=== PATIENT | female | born 1940 | race Caucasian/White ===

== ENCOUNTER 2019-01-08 07:53 | Inpatient (IN) | payer OTHER, MEDICARE ==
--- NOTE | 2019-01-08 08:06 | PDOC ---
History of Present Illness - General Stated Complaint: CHEST PAIN Time Seen by Provider: 01/08/19 08:05 - History of Present Illness Initial Comments: 01/08/19 08:05 Ms. Doan is a 78 yo female w/ pmh of hypothyroidism, s/p mitral valve repair 2 years ago and afib w/ implanted ICD/pacemaker (not on AC) who presents for evaluation of transient episode this morning of chest pain she localizes to under her breasts ALCON. Patient reports pain radiated to her L jaw and became worse as she atempted to walk around. Ms. Doan woke up her son and EMS was called. EMS gave 324 chewable aspirin en route and patient reports she is feeling much better now. Patient also reports an episode 3 weeks ago of L sided arm pain radiating up to her L neck that lasted approximately 10 minutes that she did not follow-up on. The patient denies headache and dizziness. Denies fever, chills, nausea, vomit, diarrhea and constipation. Denies dysuria, frequency, urgency and hematuria. Past History - Past Medical History Allergies/Adverse Reactions: Allergies Allergy/AdvReac Type Severity Reaction Status Date / Time shellfish derived Allergy Verified 01/08/19 08:14 Home Medications: Ambulatory Orders Atorvastatin Ca [Lipitor] 40 mg PO HS 05/30/14 Levothyroxine [Synthroid -] 100 mcg PO DAILY 05/30/14 Aspirin Coated [Ecotrin -] 81 mg PO DAILY 04/19/15 L.acidoph,Paracasei, B.lactis [Probiotic] 1 each PO DAILY 04/19/15 Metoprolol Succinate [Toprol XL -] 25 mg PO DAILY 04/19/15 Multivitamin with Minerals [Icaps Plus] 1 each PO DAILY 04/19/15 Anemia: No Asthma: No Cancer: No Cardiac Disorders: Yes (mvp, cardiac arrhythmia) CVA: No COPD: No CHF: No Dementia: No Diabetes: No GI Disorders: Yes (colon polyps) Disorders: No HTN: No Hypercholesterolemia: Yes Liver Disease: No Seizures: No Thyroid Disease: No - Psycho Social/Smoking Cessation Hx Smoking History: Former smoker Have you smoked in the past 12 months: No If you are a former smoker, when did you quit?: 1971 Hx Alcohol Use: No Drug/Substance Use Hx: No Substance Use Type: None Hx Substance Use Treatment: No Review of Systems - Review of Systems Comments:: 01/08/19 08:05 GENERAL/CONSTITUTIONAL: No fever or chills. No weakness. HEAD, EYES, EARS, NOSE AND THROAT: No change in vision. No ear pain or discharge. No sore throat. CARDIOVASCULAR: +Chest pain radiating as described w/ SOB now resolved. RESPIRATORY: No cough, wheezing, or hemoptysis. GASTROINTESTINAL: No nausea, vomiting, diarrhea or constipation. GENITOURINARY: No dysuria, frequency, or change in urination. MUSCULOSKELETAL: No joint or muscle swelling or pain. No neck or back pain. SKIN: No rash NEUROLOGIC: No headache, vertigo, loss of consciousness, or change in strength/ sensation. ENDOCRINE: No increased thirst. No abnormal weight change HEMATOLOGIC/LYMPHATIC: No anemia, easy bleeding, or history of blood clots. ALLERGIC/IMMUNOLOGIC: No hives or skin allergy. *Physical Exam - Physical Exam Comments: 01/08/19 08:05 GENERAL: Awake, alert, and fully oriented, in no acute distress HEAD: No signs of trauma, normocephalic, atraumatic EYES: PERRLA, EOMI, sclera anicteric, conjunctiva clear ENT: Auricles normal inspection, hearing grossly normal, nares patent, oropharynx clear without exudates. Moist mucosa NECK: Normal ROM, supple, no lymphadenopathy, JVD, or masses LUNGS: No distress, speaks full sentences, clear to auscultation bilaterally HEART: Regular rate and rhythm, normal S1 and S2, no murmurs, rubs or gallops, peripheral pulses normal and equal bilaterally. ABDOMEN: Soft, nontender, normoactive bowel sounds. No guarding, no rebound. No masses EXTREMITIES: Normal inspection, Normal range of motion, no edema. No clubbing or cyanosis. NEUROLOGICAL: Cranial nerves II through XII grossly intact. Normal speech, normal gait, no focal sensorimotor deficits SKIN: Warm, Dry, normal turgor, no rashes or lesions noted. ED Treatment Course - LABORATORY CBC & Chemistry Diagram: 01/08/19 08:30 01/08/19 08:30 Medical Decision Making - Medical Decision Making 01/08/19 09:15 Ms. Doan is a 78 yo female w/ pmh as described who presents for evaluation of symptoms concerning for ACS vs. GERD vs. Pneumonia. Patient evaluated with labs as below, EKG, CXR. Patient EKG significant for ST depressions noted in V2-V3 w/ out reciprocal changes. Patient will likely be admitted for further cardiac follow-up. 01/08/19 11:33 Patient labs grossly wnl as below. Repeat EKG ordered to r/o evolution of process unchanged. Labs grossly wnl as below. Patient admitted to hospitalist for further evaluation. 01/08/19 13:18 Discussed patient with cardiology as well as PCP who believe patient ok for med/ surg bed. Patient downgraded from telemetry. Laboratory Results - last 24 hr 01/08/19 01/08/19 01/08/19 08:30 08:30 08:30 WBC 5.3 RBC 4.84 Hgb 14.6 Hct 44.2 MCV 91.3 MCH 30.1 MCHC 33.0 RDW 13.7 Plt Count 146 MPV 8.9 Absolute Neuts (auto) 3.9 Neutrophils % 73.6 Lymphocytes % 13.5 Monocytes % 8.6 Eosinophils % 3.3 Basophils % 1.0 Nucleated RBC % 0 PT with INR 10.90 INR 0.92 PTT (Actin FS) 32.1 Sodium 140 Potassium 4.3 Chloride 106 Carbon Dioxide 29 Anion Gap 5 L BUN 22.5 H Creatinine 0.7 Est GFR (CKD-EPI)AfAm 96.86 Est GFR (CKD-EPI)NonAf 83.57 Random Glucose 98 Calcium 8.4 L Total Bilirubin 0.6 AST 22 ALT 30 Alkaline Phosphatase 107 Creatine Kinase 48 Troponin I < 0.02 Total Protein 6.8 Albumin 3.3 L TSH 3.75 H Discharge - Discharge Information Problems reviewed: Yes Clinical Impression/Diagnosis: Chest pain Qualifiers: Chest pain type: unspecified Qualified Code(s): R07.9 - Chest pain, unspecified - Admission Yes - Follow up/Referral - Patient Discharge Instructions - Post Discharge Activity
[2019-01-08 08:46] LABS: EOS % 3.3 % (0-4.5); HEMATOCRIT 44.2 % (32.4-45.2); HEMOGLOBIN 14.6 GM/dL (10.7-15.3); LYMPH % 13.5 % (8-40); MCH 30.1 pg (25.7-33.7); MEAN CELL VOLUME 91.3 fl (80-96); MEAN PLT VOLUME 8.9 fl (7.5-11.1); MONO % 8.6 % (3.8-10.2); NEUT % 73.6 % (42.8-82.8); PLATELET COUNT 146 K/MM3 (134-434); RBC 4.84 M/mm3 (3.60-5.2); RDW 13.7 % (11.6-15.6); WHITE BLOOD COUNT 5.3 K/mm3 (4.0-10.0)
[2019-01-08 09:05] LABS: INR 0.92 (0.83-1.09); PROTHROMBIN TIME (PATIENT) 10.9 SEC (9.7-13.0)
[2019-01-08 09:08] LABS: ACTIVATED PTT 32.1 SECONDS (25.2-36.5)
[2019-01-08 09:23] LABS: ALBUMIN 3.3 g/dl (3.4-5.0); ALK PHOS 107 U/L (45-117); ANION GAP 5 MMOL/L (8-16); BILIRUBIN,TOTAL 0.6 mg/dL (0.2-1); BLOOD UREA NITROGEN 22.5 mg/dL (7-18); CALCIUM 8.4 mg/dL (8.5-10.1); CHLORIDE 106 mmol/L (98-107); CO2 29 mmol/L (21-32); CREATININE 0.7 mg/dL (0.55-1.3); GLUCOSE,RANDOM 98 mg/dL (74-106); POTASSIUM 4.3 mmol/L (3.5-5.1); SGOT/AST 22 U/L (15-37); SGPT/ALT 30 U/L (13-61); SODIUM 140 mmol/L (136-145); TOT PROT 6.8 g/dl (6.4-8.2)
--- NOTE | 2019-01-08 11:32 | PDOC ---
Attending Attestation - Resident Resident Name: Maicol Marti - ED Attending Attestation I have performed the following: I have examined & evaluated the patient, The case was reviewed & discussed with the resident, I agree w/resident's findings & plan, Exceptions are as noted - HPI HPI: 01/08/19 11:28 78-year-old female history of MVR A. fib hypertension AICD here today complaining of chest pain described as pressure-like sensation. Patient started started left side radiating across her chest lasted for several hours she said it became progressively worse with time did have some associated diaphoresis and nausea at the time sensation of feeling short of breath denies any numbness or tingling no history of blood clots in the legs or lungs previously. Denies any recent leg swelling or calf pain no cough no fevers no chills at this time states her pain has since resolved - Physicial Exam PE: 01/08/19 11:30 Awake alert no acute distress lungs are clear bilaterally no appreciated murmurs rubs or gallops. Abdomen is soft nontender extremities are warm well perfused there is no peripheral edema or calf tenderness skin is warm and dry neurologically patient is awake alert oriented x3 pulses are symmetric bilaterally - Medical Decision Making 01/08/19 11:30 78-year-old female history of MVR AICD hypertension here today complaining of chest pain. Story is concerning for unstable angina EKG shows mild ST depressions in V2 V3 otherwise is unremarkable it is change from her prior EKG from 2007 in October. Will send CBC CMP troponin chest x-ray patient was given aspirin due to her risk factors and concerning story in addition to the EKG changes will be admitted to the hospital. Repeat EKG was obtained which shows persistent morphology no acute changes Heart Score/ECG Review #1 ECG reviewed & interpreted by me at: 11:31 General ECG Interpretation: Sinus Rhythm, Normal Rate (86), Normal Intervals Compared to previous ECG there are: Changes noted (comparison st depression V2, V3) #2 General ECG Interpretation: Sinus Rhythm, Normal Rate (79), Normal Intervals Compared to previous ECG there are: Other (Mild ST downslope V2. v3, left axis. no change from prior ekg)
[2019-01-08] MEDS ORDERED: ACETAMINOPHEN 325 MG TABLET (FP) PO PRN (12:29)
--- NOTE | 2019-01-08 12:31 | HP ---
Admitting History and Physical - Primary Care Physician PCP: Ruby Espinoza - Admission Chief Complaint: chest pain/dyspnea History of Present Illness: 78-year-old female history of MVR A. fib hypertension AICD here today complaining of chest pain described as pressure-like sensation. Patient started started left side radiating across her chest lasted for several hours she said it became progressively worse with time did have some associated diaphoresis and nausea at the time sensation of feeling short of breath denies any numbness or tingling no history of blood clots in the legs or lungs previously. Denies any recent leg swelling or calf pain no cough no fevers no chills at this time states her pain has since resolved History Source: Patient, Medical Record - Smoking History Smoking history: Former smoker Have you smoked in the past 12 months: No If you are a former smoker, when did you quit?: 1971 - Alcohol/Substance Use Hx Alcohol Use: No Home Medications - Allergies Allergies/Adverse Reactions: Allergies Allergy/AdvReac Type Severity Reaction Status Date / Time shellfish derived Allergy Verified 01/08/19 08:14 - Home Medications Home Medications: Ambulatory Orders Atorvastatin Ca [Lipitor] 40 mg PO HS 05/30/14 Levothyroxine [Synthroid -] 100 mcg PO DAILY 05/30/14 Aspirin Coated [Ecotrin -] 81 mg PO DAILY 04/19/15 L.acidoph,Paracasei, B.lactis [Probiotic] 1 each PO DAILY 04/19/15 Metoprolol Succinate [Toprol XL -] 25 mg PO DAILY 04/19/15 Multivitamin with Minerals [Icaps Plus] 1 each PO DAILY 04/19/15 Review of Systems - Review of Systems Constitutional: reports: Weakness Cardiovascular: reports: Chest Pain Respiratory: reports: Orthopnea Gastrointestinal: reports: No Symptoms Genitourinary: reports: No Symptoms Hematology/Lymphatic: reports: No Symptoms Psychiatric: reports: No Symptoms Physical Examination Vital Signs: Vital Signs Temperature Pulse Rate 86 01/08/19 08:11 Respiratory Rate 18 01/08/19 08:11 Blood Pressure 129/66 01/08/19 08:11 O2 Sat by Pulse Oximetry (%) 100 01/08/19 08:11 Constitutional: Yes: Mild Distress Cardiovascular: Yes: Regular Rate and Rhythm Respiratory: Yes: WNL Gastrointestinal: Yes: WNL Renal/: Yes: WNL Musculoskeletal: Yes: WNL Edema: No Integumentary: Yes: WNL Wound/Incision: Yes: Clean/Dry Neurological: Yes: WNL ...Motor Strength: WNL Labs: CBC, BMP 01/08/19 08:30 01/08/19 08:30 Imaging - Results Chest X-ray: Report Reviewed Problem List - Problems (1) ICD (implantable cardioverter-defibrillator) in place Code(s): Z95.810 - PRESENCE OF AUTOMATIC (IMPLANTABLE) CARDIAC DEFIBRILLATOR (2) History of loop recorder Code(s): Z98.890 - OTHER SPECIFIED POSTPROCEDURAL STATES (3) CAD (coronary artery disease) Code(s): I25.10 - ATHSCL HEART DISEASE OF [place] CORONARY ARTERY W/O ANG PCTRS (4) Chest pain Code(s): R07.9 - CHEST PAIN, UNSPECIFIED Qualifiers: Chest pain type: unspecified Qualified Code(s): R07.9 - Chest pain, unspecified Assessment/Plan CARDIAC WORKUP IN PROGRESS SEEN BY DR HERNANDEZ WHO REPORTS PT HAD CARDIAC CATH <5YRS AGO NO NEED FOR CARDIAC WORKUP MONITOR OVERNIGHT AND DC IN MORNING
--- NOTE | 2019-01-08 13:01 | CON.CARD ---
Consult Consult Specialty:: Cardiology Referred by:: Parish Reason for Consultation:: cp - History of Present Illness Chief Complaint: chest pain History of Present Illness: 78 yo female patient who has a history of bioprosthetic MV [address] Patel at [facility], [place] ablation w/ Dr. Tavarez 06/04/17 followed by ICD placement and ILR implantation (to rule out PAF),right sided monocular visual loss with a negative workup now admitted with bilateral chest pain at rest under both breasts, lasting 30 minutes with associated sob and diaphoresis. No palps, dizziness or syncope. Cath 2017 nonobstructive CAD Echo 09/1917: Interpretation Summary Intravenous echo contrast Definity was administered to improve visualization of wall motion. Normal left ventricular wall motion and ejection fraction. Biological mitral prosthesis with normal function. Pacer wire(s) visualized in right heart. - History Source History Provided By: Patient, Medical Record - Alcohol/Substance Use Hx Alcohol Use: No - Smoking History Smoking history: Former smoker Have you smoked in the past 12 months: No If you are a former smoker, when did you quit?: 1972 Home Medications - Allergies Allergies/Adverse Reactions: Allergies Allergy/AdvReac Type Severity Reaction Status Date / Time shellfish derived Allergy Verified 01/08/19 08:14 - Home Medications Home Medications: Ambulatory Orders Atorvastatin Ca [Lipitor] 40 mg PO HS 05/30/14 Levothyroxine [Synthroid -] 100 mcg PO DAILY 05/30/14 Aspirin Coated [Ecotrin -] 81 mg PO DAILY 04/19/15 L.acidoph,Paracasei, B.lactis [Probiotic] 1 each PO DAILY 04/19/15 Metoprolol Succinate [Toprol XL -] 25 mg PO DAILY 04/19/15 Multivitamin with Minerals [Icaps Plus] 1 each PO DAILY 04/19/15 Vital Signs: Vital Signs Temperature Pulse Rate 86 01/08/19 08:11 Respiratory Rate 18 01/08/19 08:11 Blood Pressure 129/66 01/08/19 08:11 O2 Sat by Pulse Oximetry (%) 100 01/08/19 08:11 Constitutional: Yes: No Distress, Calm Eyes: Yes: Conjunctiva Clear, EOM Intact HENT: Yes: Atraumatic, Normocephalic Neck: Yes: Trachea Midline Respiratory: Yes: CTA Bilaterally Gastrointestinal: Yes: Normal Bowel Sounds, Soft Cardiovascular: Yes: Regular Rate and Rhythm JVD: No Carotid Bruit: No PMI: Non-Displaced Heart Sounds: Yes: S1, S2 Extremities: Yes: WNL Edema: No Peripheral Pulses WNL: Yes - Other Data Labs, Other Data: CBC, BMP 01/08/19 08:30 01/08/19 08:30 INR, PTT INR 0.92 (0.83-1.09) 01/08/19 08:30 Troponin, BNP 01/08/19 08:30 Troponin I < 0.02 Troponin, BNP 01/08/19 08:30 Troponin I < 0.02 Imaging - Results Chest X-ray: Report Reviewed EKG: Report Reviewed Assessment/Plan 78 yo female patient who has a history of bioprosthetic MV [address] Patel at [facility], [place] ablation w/ Dr. Tavarez 06/04/17 followed by ICD placement and ILR implantation (to rule out PAF),right sided monocular visual loss with a negative workup now admitted with bilateral chest pain at rest under both breasts, lasting 30 minutes with associated sob and diaphoresis. No palps, dizziness or syncope. Imp/Plan -chest pain is somewhat atypical, known nonobstructive CAD 2017. -would observe overnight, repeat troponin. -would not get inpatient ischemia workup at this point given her recent cardiac cath and cardiac MRI at [facility].
[2019-01-08] MEDS ORDERED: HEPARIN NA (PORCINE) 5,000 UNITS/ML 1ML VIAL ONE (21:02)
[2019-01-08] MEDS ORDERED: ATORVASTATIN CA 40 MG TABLET (FP) ONE (21:02)
--- NOTE | 2019-01-08 21:57 | EKG ---
Test Reason : Blood Pressure : / mmHG Vent. Rate : 086 BPM Atrial Rate : 086 BPM P-R Int : 192 ms QRS Dur : 094 ms QT Int : 384 ms P-R-T Axes : 067 -17 080 degrees QTc Int : 459 ms SINUS RHYTHM WITH OCCASIONAL PREMATURE VENTRICULAR COMPLEXES CANNOT RULE OUT ANTERIOR INFARCT , AGE UNDETERMINED ABNORMAL ECG WHEN COMPARED WITH ECG OF 08-NOV-2007 08:33, PREMATURE VENTRICULAR COMPLEXES ARE NOW PRESENT QRS DURATION HAS INCREASED Confirmed by Prachi Padgett ([id number]) on 01/08/2019 9:57:21 PM Referred By: Confirmed By:Prachi Padgett
[2019-01-08] MEDS ORDERED: ATORVASTATIN CA 40 MG TABLET (FP) PO SCH (22:00)
[2019-01-08] MEDS ORDERED: HEPARIN NA (PORCINE) 5,000 UNITS/ML 1ML VIAL SQ SCH (22:00)
[2019-01-09] MEDS ORDERED: ACETAMINOPHEN 325 MG TABLET (FP) PO PRN (03:30)
[2019-01-09 04:23] VITALS: BMI 28.8
[2019-01-09] MEDS ORDERED: LEVOTHYROXINE NA 100 MCG TABLET (FP) PO SCH ×2 (07:00)
[2019-01-09 08:32] LABS: HEMATOCRIT 40.6 % (32.4-45.2); HEMOGLOBIN 13.5 GM/dL (10.7-15.3); MCH 30.6 pg (25.7-33.7); MCHC 33.1 g/dl (32.0-36.0); MEAN CELL VOLUME 92.4 fl (80-96); MEAN PLT VOLUME 8.9 fl (7.5-11.1); PLATELET COUNT 134 K/MM3 (134-434); RBC 4.39 M/mm3 (3.60-5.2); WHITE BLOOD COUNT 4.5 K/mm3 (4.0-10.0)
[2019-01-09 09:10] LABS: ALBUMIN 3.2 g/dl (3.4-5.0); ALK PHOS 103 U/L (45-117); ANION GAP 4 MMOL/L (8-16); BILIRUBIN,TOTAL 0.7 mg/dL (0.2-1); CALCIUM 8.7 mg/dL (8.5-10.1); CHLORIDE 108 mmol/L (98-107); CHOLESTEROL 162 mg/dL (50-200); CO2 30 mmol/L (21-32); CREATININE 0.6 mg/dL (0.55-1.3); GLUCOSE,RANDOM 87 mg/dL (74-106); HDL CHOLESTEROL 56 mg/dL (40-60); LDL CHOLESTEROL (ONLY SJRH) 86 mg/dL (5-100); POTASSIUM 4.2 mmol/L (3.5-5.1); SGOT/AST 21 U/L (15-37); SGPT/ALT 27 U/L (13-61); SODIUM 141 mmol/L (136-145); TOT PROT 6.4 g/dl (6.4-8.2); TRIGLYCERIDES 108 mg/dL (0-150)
[2019-01-09] MEDS ORDERED: HEPARIN NA (PORCINE) 5,000 UNITS/ML 1ML VIAL SQ SCH (10:00)
[2019-01-09] MEDS ORDERED: LACTOBACILLUS ACIDOPHILUS 1 TABLET PO SCH ×2 (10:00)
[2019-01-09] MEDS ORDERED: ASPIRIN COATED 81 MG TABLET.EC PO SCH ×2 (10:00)
[2019-01-09] MEDS ORDERED: metoPROLOL SUCCINATE 25 MG TAB.SR.24H (FP) PO SCH ×2 (10:00)
[2019-01-09 10:09] VITALS: BP 145/68; PULSE 81; TEMP 98.2
--- NOTE | 2019-01-09 11:06 | DS ---
Physical Examination Vital Signs: Vital Signs Temperature 98.2 F 01/09/19 10:07 Pulse Rate 81 01/09/19 10:07 Respiratory Rate 18 01/09/19 10:07 Blood Pressure 145/68 01/09/19 10:07 O2 Sat by Pulse Oximetry (%) 97 01/09/19 09:00 Findings/Remarks: Laboratory Tests 01/08/19 01/08/19 01/08/19 08:30 08:30 08:30 WBC 5.3 RBC 4.84 Hgb 14.6 Hct 44.2 MCV 91.3 MCH 30.1 MCHC 33.0 RDW 13.7 Plt Count 146 MPV 8.9 Absolute Neuts (auto) 3.9 Neutrophils % 73.6 Lymphocytes % 13.5 Monocytes % 8.6 Eosinophils % 3.3 Basophils % 1.0 Nucleated RBC % 0 PT with INR 10.90 INR 0.92 PTT (Actin FS) 32.1 Sodium 140 Potassium 4.3 Chloride 106 Carbon Dioxide 29 Anion Gap 5 L BUN 22.5 H Creatinine 0.7 Est GFR (CKD-EPI)AfAm 96.86 Est GFR (CKD-EPI)NonAf 83.57 Random Glucose 98 Hemoglobin A1c % Calcium 8.4 L Total Bilirubin 0.6 AST 22 ALT 30 Alkaline Phosphatase 107 Creatine Kinase 48 Troponin I < 0.02 Total Protein 6.8 Albumin 3.3 L Triglycerides Cholesterol Total LDL Cholesterol HDL Cholesterol TSH 3.75 H 01/09/19 01/09/19 01/09/19 07:20 07:20 07:20 WBC 4.5 RBC 4.39 Hgb 13.5 Hct 40.6 MCV 92.4 MCH 30.6 MCHC 33.1 RDW 14.0 Plt Count 134 MPV 8.9 Absolute Neuts (auto) Neutrophils % Lymphocytes % Monocytes % Eosinophils % Basophils % Nucleated RBC % PT with INR INR PTT (Actin FS) Sodium 141 Potassium 4.2 Chloride 108 H Carbon Dioxide 30 Anion Gap 4 L BUN 18.0 Creatinine 0.6 Est GFR (CKD-EPI)AfAm 101.90 Est GFR (CKD-EPI)NonAf 87.92 Random Glucose 87 Hemoglobin A1c % 5.1 Calcium 8.7 Total Bilirubin 0.7 AST 21 ALT 27 Alkaline Phosphatase 103 Creatine Kinase Troponin I Total Protein 6.4 Albumin 3.2 L Triglycerides 108 Cholesterol 162 Total LDL Cholesterol 86 HDL Cholesterol 56 TSH Active Medications Generic Name Dose Route Start Last Admin Trade Name Freq PRN Reason Stop Dose Admin Acetaminophen 650 mg 01/09/19 03:30 Tylenol - PO Q6H PRN PAIN LEVEL 1-5 Aspirin 81 mg 01/09/19 10:00 01/09/19 10:18 Ecotrin - PO 81 mg DAILY MARCIE Administration Atorvastatin Calcium 40 mg 01/09/19 22:00 Lipitor - PO HS MARCIE Heparin Sodium (Porcine) 5,000 unit 01/09/19 10:00 01/09/19 10:19 Heparin - SQ Not Given BID MARCIE Lactobacillus Acidophilus 1 tab 01/09/19 10:00 01/09/19 10:18 Bacid - PO 1 tab DAILY MARCIE Administration Levothyroxine Sodium 100 mcg 01/09/19 07:00 01/09/19 06:43 Synthroid - PO 100 mcg DAILY@0700 MARCIE Administration Metoprolol Succinate 25 mg 01/09/19 10:00 01/09/19 10:18 Toprol Xl - PO 25 mg DAILY MARCIE Administration Constitutional: Yes: No Distress, Calm Eyes: Yes: Conjunctiva Clear HENT: Yes: Atraumatic Cardiovascular: Yes: Regular Rate and Rhythm Respiratory: Yes: Regular, CTA Bilaterally Gastrointestinal: Yes: Normal Bowel Sounds, Soft Musculoskeletal: Yes: WNL Extremities: Yes: WNL Edema: No Neurological: Yes: Alert, Oriented Psychiatric: Yes: Alert, Oriented Labs: CBC, BMP 01/09/19 07:20 01/09/19 07:20 Discharge Summary Problems reviewed: Yes Reason For Visit: CHEST PAIN/ACUTE CORONARY SYNDROME Current Active Problems CAD (coronary artery disease) (Acute) Chest pain (Acute) History of loop recorder (Acute) ICD (implantable cardioverter-defibrillator) in place (Acute) Condition: Stable - Instructions Diet, Activity, Other Instructions: Follow up with PMD in 1 week of discharge Follow up with Research Geologist after discharge from hospital resume medication regimen as prescribed return to ER if develop severe chest pain, respiratory distress, fever Referrals: Ruby Espinoza MD [Primary Care Provider] - Disposition: HOME - Home Medications Comprehensive Discharge Medication List: Ambulatory Orders Atorvastatin Ca [Lipitor] 40 mg PO HS 05/30/14 Levothyroxine [Synthroid -] 100 mcg PO DAILY 05/30/14 Aspirin Coated [Ecotrin -] 81 mg PO DAILY 04/19/15 L.acidoph,Paracasei, B.lactis [Probiotic] 1 each PO DAILY 04/19/15 Metoprolol Succinate [Toprol XL -] 25 mg PO DAILY 04/19/15 Multivitamin with Minerals [Icaps Plus] 1 each PO DAILY 04/19/15 Acetaminophen [Tylenol .Regular Strength -] 650 mg PO Q6H PRN tablet 01/09/19 Acetaminophen [Tylenol .Regular Strength -] 650 mg PO Q6H PRN tablet 01/09/19
--- NOTE | 2019-01-09 12:57 | EKG ---
Test Reason : Blood Pressure : / mmHG Vent. Rate : 079 BPM Atrial Rate : 079 BPM P-R Int : 186 ms QRS Dur : 092 ms QT Int : 402 ms P-R-T Axes : 061 -18 083 degrees QTc Int : 460 ms NORMAL SINUS RHYTHM NONSPECIFIC ST AND T WAVE ABNORMALITY ABNORMAL ECG WHEN COMPARED WITH ECG OF 08-JAN-2019 08:02, PREMATURE VENTRICULAR COMPLEXES ARE NO LONGER PRESENT NONSPECIFIC T WAVE ABNORMALITY, WORSE IN LATERAL LEADS Confirmed by CLAY LOPEZ MD ([id number]) on 01/09/2019 12:56:27 PM Referred By: Confirmed By:CLAY LOPEZ MD
[2019-01-09] MEDS ORDERED: ATORVASTATIN CA 40 MG TABLET (FP) PO SCH (22:00)
== END 2019-01-09 13:39 | disposition home or self-care (01) | DRG 313 ==
LOC: JER 07:53 → JERBED 10:49 → J5S 01-09 03:06
PROVIDERS: ADMIT Family Medicine; ATTEND Family Medicine
DX: R07.9 Chest pain, unspecified (principal); I25.10 Atherosclerotic heart disease of native coronary artery without angina pectoris; E03.9 Hypothyroidism, unspecified; I48.91 Unspecified atrial fibrillation; Z95.810 Presence of automatic (implantable) cardiac defibrillator
CPT/HCPCS: 36415; 71045-TC-FY; 80053; 80061; 82550; 83036; 83721; 84443; 84484; 85025; 85027; 85610; 85730; 93005; 93010; 99285-25

== ENCOUNTER 2021-10-10 04:10 | Day surgery (SDC) | payer OTHER, MEDICARE ==
[2021-10-08 15:27] VITALS: BMI 28.6
[2021-10-10] MEDS ORDERED: LIDOCAINE HCL/PF 1% SDV 5ML VIAL ONE (07:19)
[2021-10-10] MEDS ORDERED: TRIAMCINOLONE ACET 40MG/1ML VIAL ONE (07:19)
[2021-10-10] MEDS ORDERED: BUPIVACAINE HCL/PF 0.5% (5MG/ML) 10 ML VIAL ONE (07:19)
[2021-10-10] MEDS ORDERED: LIDOCAINE HCL 1% PRESERVATIVE FREE - 30ML VIAL IJ ONE (12:00)
[2021-10-10] MEDS ORDERED: BUPIVACAINE HCL/PF 0.5% (5MG/ML) 10 ML VIAL IJ ONE (12:01)
[2021-10-10] MEDS ORDERED: TRIAMCINOLONE ACET 40MG/1ML VIAL IM ONE (12:01)
[2021-10-10 12:24] VITALS: BP 134/62; PULSE 63; TEMP 97.3
== END 2021-10-10 12:24 | disposition home or self-care (01) ==
LOC: JASU-SURG 04:10
PROVIDERS: ATTEND Pain Medicine Pain Medicine
PROC: 3E0U3BZ Introduction of Anesthetic Agent into Joints, Percutaneous Approach (ICD-10-PCS; 2021-10-10)
PROC: 3E0U33Z Introduction of Anti-inflammatory into Joints, Percutaneous Approach (ICD-10-PCS; principal; 2021-10-10 10:30)
DX: M53.3 Sacrococcygeal disorders, not elsewhere classified (principal)
CPT/HCPCS: 76000-TC-FY

== ENCOUNTER 2022-01-06 12:33 | Emergency (ER) | payer OTHER, MEDICARE ==
[2022-01-06 12:36] VITALS: BMI 29.2
[2022-01-06] MEDS ORDERED: ACETAMINOPHEN 1000 MG/100 ML BAG IVPB ONE (13:13)
[2022-01-06] MEDS ORDERED: ACETAMINOPHEN INJECTION 100 ML IVPB ONE (13:36)
[2022-01-06 14:43] LABS: BASO % 0.7 % (0-2.0); HEMATOCRIT 43.4 % (32.4-45.2); HEMOGLOBIN 14.4 GM/dL (10.7-15.3); LYMPH % 20.1 % (8-40); MCH 30.4 pg (25.7-33.7); MCHC 33.3 g/dl (32.0-36.0); MEAN CELL VOLUME 91.4 fl (80-96); MEAN PLT VOLUME 9.4 fl (7.5-11.1); MONO % 18.3 % (3.8-10.2); NEUT % 60.9 % (42.8-82.8); PLATELET COUNT 122 10^3/uL (134-434); RBC 4.75 M/mm3 (3.60-5.2); RDW 14.7 % (11.6-15.6); WHITE BLOOD COUNT 5.5 K/mm3 (4.0-10.0)
[2022-01-06 15:06] LABS: ALBUMIN 3.3 g/dl (3.4-5.0); BLOOD UREA NITROGEN 12.9 mg/dL (7-18); CALCIUM 8.6 mg/dL (8.5-10.1)
[2022-01-06 15:07] VITALS: PULSE 65; RESP 16
[2022-01-06 15:09] LABS: CREATININE 0.6 mg/dL (0.55-1.3)
[2022-01-06 15:10] LABS: BILIRUBIN,TOTAL 0.5 mg/dL (0.2-1); TOT PROT 6.9 g/dl (6.4-8.2)
[2022-01-06 15:14] LABS: N-TERMINAL BNP 1759.2 pg/ml (5-450)
[2022-01-06 15:50] LABS: EPI CELLS 4 /uL (0-25.1); HYALINE CASTS 0 /uL (0-3.1); URINE APPEARANCE CLEAR; URINE BACTERIA 12 /uL (0-1359); URINE BILIRUBIN NEGATIVE (NEGATIVE); URINE COLOR YELLOW; URINE GLUCOSE (UA) NEGATIVE (NEGATIVE); URINE KETONE 1+ (NEGATIVE); URINE LEUK ESTERASE NEGATIVE (NEGATIVE); URINE NITRITE NEGATIVE (NEGATIVE); URINE PROTEIN NEGATIVE (NEGATIVE); URINE RBC 14 /uL (0-23.9); URINE UROBILINOGEN 0.2 mg/dL (0.2-1.0); URINE WBC 7 /uL (0-25.8)
[2022-01-06 16:15] VITALS: BP 118/60; TEMP 98.6
== END 2022-01-06 16:45 | disposition home or self-care (01) ==
LOC: JER 12:33
PROC: 3E033GC Introduction of Other Therapeutic Substance into Peripheral Vein, Percutaneous Approach (ICD-10-PCS; principal; 2022-01-06)
DX: U07.1 COVID-19 (principal); I49.3 Ventricular premature depolarization
CPT/HCPCS: 36415; 71045-TC-FY; 80053; 81003; 83880; 84443; 84484; 85025; 87086; 93005; 93010; 99285-25

== ENCOUNTER 2022-01-09 05:34 | Emergency (ER) | payer OTHER, MEDICARE ==
[2022-01-09 06:09] VITALS: TEMP 98.2; BMI 29.2
[2022-01-09 07:22] LABS: ALBUMIN 3.6 g/dl (3.4-5.0); CALCIUM 9.3 mg/dL (8.5-10.1)
[2022-01-09 07:23] LABS: BLOOD UREA NITROGEN 12.3 mg/dL (7-18)
[2022-01-09 07:25] LABS: CREATININE 0.6 mg/dL (0.55-1.3)
[2022-01-09 07:28] LABS: TOT PROT 7.3 g/dl (6.4-8.2)
[2022-01-09 07:34] LABS: BASO % 0.5 % (0-2.0); EOS % 0.6 % (0-4.5); HEMATOCRIT 43.4 % (32.4-45.2); HEMOGLOBIN 14.5 GM/dL (10.7-15.3); LYMPH % 23.4 % (8-40); MCH 29.9 pg (25.7-33.7); MCHC 33.5 g/dl (32.0-36.0); MEAN CELL VOLUME 89.3 fl (80-96); MEAN PLT VOLUME 9.9 fl (7.5-11.1); MONO % 12.1 % (3.8-10.2); NEUT % 63.4 % (42.8-82.8); PLATELET COUNT 147 10^3/uL (134-434); RBC 4.86 M/mm3 (3.60-5.2); RDW 13.9 % (11.6-15.6); WHITE BLOOD COUNT 4.3 K/mm3 (4.0-10.0)
[2022-01-09 09:43] VITALS: BP 123/66; PULSE 70; RESP 16
== END 2022-01-09 10:16 | disposition home or self-care (01) ==
LOC: JER 05:34
DX: R07.9 Chest pain, unspecified (principal)
CPT/HCPCS: 36415; 71045-TC-FY; 80053; 84484; 85025; 93005; 93010; 99284-25

== ENCOUNTER 2022-03-03 04:30 | Day surgery (SDC) | payer OTHER, MEDICARE ==
[2022-02-27 17:29] VITALS: BMI 29.2
[2022-03-03] MEDS ORDERED: LIDOCAINE HCL/PF 1% SDV 5ML VIAL ONE (07:57)
[2022-03-03] MEDS ORDERED: DEXAMETHASONE SOD PHOSPHATE 10 MG/1 ML VIAL ONE (07:57)
[2022-03-03 11:32] VITALS: PULSE 74
[2022-03-03] MEDS ORDERED: IOHEXOL 180 MG/1 ML ML IJ ONE (12:51)
[2022-03-03] MEDS ORDERED: DEXAMETHASONE SOD PHOSPHATE 10 MG/1 ML VIAL IVPUSH ONE (12:51)
[2022-03-03] MEDS ORDERED: LIDOCAINE 1% P/F 10 MG/ML VIAL INF ONE (12:51)
[2022-03-03 13:41] VITALS: BP 127/65; RESP 18; TEMP 97.5
== END 2022-03-03 13:50 | disposition home or self-care (01) ==
LOC: JASU-SURG 04:30
PROVIDERS: ATTEND Pain Medicine Pain Medicine
PROC: 3E0R33Z Introduction of Anti-inflammatory into Spinal Canal, Percutaneous Approach (ICD-10-PCS; 2022-03-03)
PROC: 3E0R3BZ Introduction of Anesthetic Agent into Spinal Canal, Percutaneous Approach (ICD-10-PCS; principal; 2022-03-03 12:30)
DX: M54.16 Radiculopathy, lumbar region (principal)
CPT/HCPCS: 76000-TC-FY; J1100

== ENCOUNTER 2022-04-03 04:14 | Day surgery (SDC) | payer OTHER, MEDICARE ==
[2022-04-02 08:58] VITALS: BMI 29.2
[~2022-04-03 04:14] MED LIST: BUPIVACAINE HCL/PF 0.5% (5MG/ML) 10 ML VIAL IJ ONE; IOHEXOL 180 MG/1 ML ML IJ ONE; LIDOCAINE 1% P/F 10 MG/ML VIAL INF ONE; TRIAMCINOLONE ACET 40MG/1ML VIAL IM ONE
[2022-04-03] MEDS ORDERED: BUPIVACAINE HCL/PF 0.5% (5MG/ML) 10 ML VIAL ONE (07:15)
[2022-04-03] MEDS ORDERED: TRIAMCINOLONE ACET 40MG/1ML VIAL ONE (07:15)
[2022-04-03] MEDS ORDERED: LIDOCAINE HCL/PF 1% SDV 5ML VIAL ONE (07:15)
[2022-04-03 10:01] VITALS: PULSE 70
[2022-04-03] MEDS ORDERED: BUPIVACAINE HCL/PF 0.5% (5MG/ML) 10 ML VIAL IJ ONE (12:07)
[2022-04-03] MEDS ORDERED: TRIAMCINOLONE ACET 40MG/1ML VIAL IM ONE (12:07)
[2022-04-03] MEDS ORDERED: IOHEXOL 180 MG/1 ML ML IJ ONE (12:07)
[2022-04-03] MEDS ORDERED: LIDOCAINE 1% P/F 10 MG/ML VIAL INF ONE (12:07)
[2022-04-03 12:24] VITALS: BP 135/73; RESP 18; TEMP 98.1
== END 2022-04-03 12:28 | disposition home or self-care (01) ==
LOC: JASU-SURG 04:14
PROVIDERS: ATTEND Pain Medicine Pain Medicine
PROC: 3E023BZ Introduction of Anesthetic Agent into Muscle, Percutaneous Approach (ICD-10-PCS; 2022-04-03)
PROC: 3E0233Z Introduction of Anti-inflammatory into Muscle, Percutaneous Approach (ICD-10-PCS; principal; 2022-04-03 11:00)
DX: M53.3 Sacrococcygeal disorders, not elsewhere classified (principal)
CPT/HCPCS: 76000-TC-FY

== ENCOUNTER 2023-03-19 05:03 | Day surgery (SDC) | payer OTHER, MEDICARE ==
[2023-03-17 14:00] VITALS: BMI 28.3
[2023-03-19] MEDS ORDERED: LIDOCAINE HCL/PF 1% SDV 5ML VIAL ONE (07:31)
[2023-03-19] MEDS ORDERED: LIDOCAINE HCL/PF 2% SDV 5ML VIAL ONE (07:31)
[2023-03-19] MEDS ORDERED: TRIAMCINOLONE ACET 40MG/1ML VIAL ONE ×2 (07:31→10:39)
[2023-03-19] MEDS ORDERED: BUPIVACAINE HCL/PF 0.5% (5MG/ML) 10 ML VIAL ONE (07:31)
[2023-03-19] MEDS ORDERED: ACETAMINOPHEN 500 MG TABLET (FP) PO PRN (10:03)
[2023-03-19] MEDS ORDERED: IOHEXOL 180 MG/1 ML ML IJ ONE (10:52)
[2023-03-19] MEDS ORDERED: LIDOCAINE 1% P/F 10 MG/ML VIAL INF ONE (10:52)
[2023-03-19] MEDS ORDERED: TRIAMCINOLONE ACETONIDE 40 MG/ML 10 ML VIAL IJ ONE (10:52)
[2023-03-19] MEDS ORDERED: BUPIVACAINE HCL/PF 0.5% (5MG/ML) 10 ML VIAL IJ ONE (10:52)
[2023-03-19 12:41] VITALS: BP 130/68; PULSE 78; RESP 20; TEMP 97.8
== END 2023-03-19 11:20 | disposition home or self-care (01) ==
LOC: JASU-SURG 05:03
PROVIDERS: ATTEND Pain Medicine Pain Medicine
PROC: 3E0U3BZ Introduction of Anesthetic Agent into Joints, Percutaneous Approach (ICD-10-PCS; 2023-03-19)
PROC: 3E0U33Z Introduction of Anti-inflammatory into Joints, Percutaneous Approach (ICD-10-PCS; principal; 2023-03-19 11:00)
DX: M53.3 Sacrococcygeal disorders, not elsewhere classified (principal)
CPT/HCPCS: 76000-TC-FY

== ENCOUNTER 2023-12-06 15:10 | Inpatient (IN) | payer OTHER, MEDICARE ==
[2023-12-06 15:58] VITALS: BMI 27.8
[2023-12-06] MEDS ORDERED: METHOCARBAMOL 500 MG TABLET ONE (17:07)
[2023-12-06] MEDS ORDERED: ACETAMINOPHEN 500 MG TABLET (FP) ONE (17:07)
[2023-12-06] MEDS ORDERED: LIDOCAINE 4% PATCH TP ONE (17:12)
[2023-12-06] MEDS: ACETAMINOPHEN 500 MG TABLET (FP) PO ONE (17:26)
[2023-12-06] MEDS: LIDOCAINE 4% PATCH TP ONE (17:26)
[2023-12-06] MEDS: METHOCARBAMOL 500 MG TABLET PO ONE (17:26)
[2023-12-06 17:30] LABS: BASO % 1.3 % (0-2.0); EOS % 2.5 % (0-4.5); HEMATOCRIT 43.5 % (32.4-45.2); HEMOGLOBIN 14.3 GM/dL (10.7-15.3); LYMPH % 22.3 % (8-40); MCH 30.2 pg (25.7-33.7); MCHC 32.9 g/dl (32.0-36.0); MEAN CELL VOLUME 91.7 fl (80-96); MEAN PLT VOLUME 8.7 fl (7.5-11.1); NEUT % 62.9 % (42.8-82.8); PLATELET COUNT 142 10^3/uL (134-434); RBC 4.75 M/mm3 (3.60-5.2); WHITE BLOOD COUNT 5.6 K/mm3 (4.0-10.0)
[2023-12-06 17:56] LABS: POTASSIUM 4.3 mmol/L (3.5-5.1)
[2023-12-06 17:57] LABS: BLOOD UREA NITROGEN 12.6 mg/dL (7-18); CALCIUM 9.3 mg/dL (8.5-10.1)
[2023-12-06 18:01] LABS: CREATININE 0.6 mg/dL (0.55-1.3)
[2023-12-06 19:20] LABS: EPI CELLS 6 /uL (0-25.1); HYALINE CASTS 0 /uL (0-3.1); URINE APPEARANCE CLEAR; URINE BACTERIA 123 /uL (0-1359); URINE BILIRUBIN NEGATIVE (NEGATIVE); URINE COLOR YELLOW; URINE GLUCOSE (UA) NEGATIVE (NEGATIVE); URINE KETONE 1+ (NEGATIVE); URINE LEUK ESTERASE 2+ (NEGATIVE); URINE NITRITE NEGATIVE (NEGATIVE); URINE PROTEIN NEGATIVE (NEGATIVE); URINE RBC 15 /uL (0-23.9); URINE WBC 105 /uL (0-25.8)
[2023-12-06] MEDS ORDERED: CEFTRIAXONE 1 GM/50 ML BAG ONE (20:27)
[2023-12-06] MEDS: LIDOCAINE PATCH REMOVAL MC SCH (22:45)
[2023-12-06] MEDS ORDERED: ASPIRIN 81 MG CHEWABLE TABLETS ONE (23:21)
[2023-12-06] MEDS ORDERED: ROSUVASTATIN CA 20 MG TABLET ONE (23:21)
[2023-12-06] MEDS: ROSUVASTATIN CA 20 MG TABLET PO SCH (23:27)
[2023-12-06] MEDS: ASPIRIN 81 MG CHEWABLE TABLETS PO SCH (23:27)
[2023-12-07] MEDS: ACETAMINOPHEN 325 MG TABLET (FP) PO PRN (00:45)
[2023-12-07] MEDS: LIDOCAINE PATCH REMOVAL MC SCH (05:49)
[2023-12-07] MEDS: LEVOTHYROXINE NA 88 MCG TABLET (FP) PO SCH (07:06)
[2023-12-07 08:14] LABS: BASO % 1.1 % (0-2.0); EOS % 4.6 % (0-4.5); HEMATOCRIT 41.8 % (32.4-45.2); HEMOGLOBIN 14.1 GM/dL (10.7-15.3); LYMPH % 28.2 % (8-40); MCH 30.3 pg (25.7-33.7); MCHC 33.7 g/dl (32.0-36.0); MONO % 11.1 % (3.8-10.2); PLATELET COUNT 147 10^3/uL (134-434); RBC 4.64 M/mm3 (3.60-5.2); RDW 14.6 % (11.6-15.6); WHITE BLOOD COUNT 4.7 K/mm3 (4.0-10.0)
[2023-12-07 08:31] LABS: POTASSIUM 3.9 mmol/L (3.5-5.1)
[2023-12-07 08:33] LABS: CALCIUM 9.1 mg/dL (8.5-10.1)
[2023-12-07 08:34] LABS: BLOOD UREA NITROGEN 12.6 mg/dL (7-18)
[2023-12-07 08:37] LABS: CREATININE 0.6 mg/dL (0.55-1.3)
[2023-12-07] MEDS: CEFTRIAXONE 1 GM in DEXTROSE 5%-WATER - 50 ML IVPB SCH (09:21)
[2023-12-07] MEDS: MECLIZINE HCL 12.5 MG TABLET PO ONE ×2 (17:12→22:29)
[2023-12-08] MEDS ORDERED: ONDANSETRON *ODT* 4 MG TABLET SL PRN (08:21)
[2023-12-08] MEDS: PANTOPRAZOLE 40 MG TABLET PO SCH (10:09)
[2023-12-08] MEDS: MECLIZINE HCL 12.5 MG TABLET PO PRN (10:11)
[2023-12-09] MEDS ORDERED: GLYCERIN 1 RECTAL SUPPOSITORY, ADULT RC PRN (11:44)
[2023-12-09] MEDS: MAGNESIUM HYDROX 2400MG/30ML ORAL SUSPENSION 30 ML CUP PO ONE (12:06)
[2023-12-09 13:37] VITALS: BP 106/64; PULSE 64; RESP 20; TEMP 97.7
== END 2023-12-09 14:29 | DRG 552 ==
LOC: JER 15:10 → JERBED 19:23 → J7W 12-07 00:07 → OBSVTOIN 12-07 08:54
PROVIDERS: ADMIT Internal Medicine; ATTEND Family Medicine
DX: M54.50 Low back pain, unspecified (principal); N39.0 Urinary tract infection, site not specified; R42 Dizziness and giddiness; Z95.810 Presence of automatic (implantable) cardiac defibrillator
CPT/HCPCS: 36415; 72131-TC; 80048; 81003; 85025; 87086; 97116-GP; 97162-GP; 99285-25; G0378

== ENCOUNTER 2024-01-06 03:51 | Day surgery (SDC) | payer OTHER, MEDICARE ==
[2024-01-04 16:39] VITALS: BMI 28.3
[2024-01-06] MEDS ORDERED: ACETAMINOPHEN 500 MG TABLET (FP) PO PRN (08:55)
[2024-01-06] MEDS ORDERED: BUPIVACAINE HCL/PF 0.75% 10 ML VIAL ONE (09:01)
[2024-01-06 12:10] VITALS: BP 116/52; PULSE 71; RESP 16; TEMP 96.2
== END 2024-01-06 12:10 | disposition home or self-care (01) ==
LOC: JASU-SURG 03:51
PROVIDERS: ATTEND Pain Medicine Pain Medicine
PROC: 3E0T3BZ Introduction of Anesthetic Agent into Peripheral Nerves and Plexi, Percutaneous Approach (ICD-10-PCS; principal; 2024-01-06 10:30)
DX: M47.816 Spondylosis without myelopathy or radiculopathy, lumbar region (principal)
CPT/HCPCS: 76000-TC-FY